=== PATIENT | female | born 2000 | race Caucasian/White ===

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

== ENCOUNTER 2022-02-23 13:21 | Emergency (ER) | payer OTHER, SELFPAY ==
[2022-02-23 13:18] VITALS: BP 123/69; PULSE 101; RESP 26; TEMP 36.4; O2SAT 99
--- NOTE | 2022-02-23 13:22 | ECG_ITS ---
Measurements Intervals [place] Rate: 95 P: 22 MT: 158 QRS: 23 QRSD: 95 T: 9 QT: 344 QTc: 434 Interpretive Statements SINUS RHYTHM DIFFUSE J-POINT ELEVATION WITH NORMALLY INFLECTED T-WAVE PROBABLE EARLY REPOLARIZATION ABNORMALITY NORMAL ECG NO PREVIOUS ECG AVAILABLE FOR COMPARISON Electronically Signed On 02-23-2022 17:01:18 CDT by Dakota Dinero M.D.
[2022-02-23 13:46] VITALS: BP 111/60; PULSE 99
--- NOTE | 2022-02-23 13:57 | ED.DIZZY ---
HPI - Dizziness General Chief Complaint: Syncope Stated Complaint: dizzy/ 8 months Time Seen by Provider: 02/23/22 13:26 History of Present Illness HPI Narrative: 21-year-old female who is 31 weeks , G3, P1 presents to the emergency room for evaluation of dizziness. Patient states that she is a patient of Dr. Ochoa with SI HF. Reports earlier today she was sitting on a public bus experiencing some dizziness. Patient states that she has been experiencing dizziness since she was 2 months . Reports getting off the bus and sitting on the sidewalk, reportedly the dizziness improved. States dizziness is worse with movement. Denies any nausea or vomiting. Denies chest pain or shortness of breath. Patient states that she was recently diagnosed with a urinary tract infection and [facility] completed a course of antibiotics. Denies nausea or vomiting. Related Data Home Medications Medication Instructions Recorded Confirmed aripiprazole 5 mg tablet (Abilify) 5 mg PO DAILY 06/09/19 11/15/19 fluoxetine 10 mg tablet 10 mg PO DAILY 09/16/19 11/15/19 Allergies Allergy/AdvReac Type Severity Reaction Status Date / Time amoxicillin Allergy Intermediate Rash Verified 11/15/19 11:43 codeine Allergy Unknown Rash Verified 11/15/19 11:43 Review of Systems Review of Systems: CONSTITUTIONAL: Denies fever, chills, or sweats. EYES: Denies visual changes, redness, or discharge. ENT: Denies rhinorrhea, congestion, sore throat, or otalgia. CARDIOVASCULAR: Denies chest pain, palpitations, or edema. RESPIRATORY: Denies cough or dyspnea. GASTROINTESTINAL: Denies abdominal pain, nausea, vomiting, or diarrhea. GENITOURINARY: Denies dysuria or hematuria. SKIN: Denies rash or itching. MUSCULOSKELETAL: Denies back pain, joint pain, or myalgia. NEUROLOGIC: Reports dizziness PSYCHIATRIC: Denies anxiety or depression. Exam Narrative: GENERAL: Well-appearing, well-nourished, no physical limitations, and in no acute distress. HEAD: Normocephalic, atraumatic. EYES: Conjunctivae normal, PERRLA and EOMI. CHEST: Clear to auscultation. No respiratory distress. No wheezes rales or rhonchi. No tenderness. HEART: Tachycardic rate and regular rhythm. No murmur heard. Normal peripheral pulses. ABDOMEN: Soft, nontender, parous abdomen, normal active bowel sounds. EXTREMITIES: Normal range of motion. No edema. No clubbing or cyanosis SKIN: Warm, dry, no rash. No noted wounds NEURO: No focal deficits. Alert and oriented x3. MAEW. CN's II-XI intact bilaterally, normal gait PSYCH: Cooperative. Normal mood and affect. Course Course Emergency Course: 1529: Spoke to Dr. Mcmahon regarding patient. He is agreeable to discharging patient home with follow-up in his office this week if she has not establish care with a different [employer] by then. Vital Signs Vital signs: Vital Signs Temperature 36.4 C L 02/23/22 13:18 Pulse Rate 101 H 02/23/22 13:18 Respiratory Rate 26 H 02/23/22 13:18 Blood Pressure 123/69 02/23/22 13:18 Pulse Oximetry 99 02/23/22 13:18 Oxygen Delivery Room Air 02/23/22 13:18 Temperature 36.4 C L 02/23/22 13:18 Pulse Rate 101 H 02/23/22 13:18 Respiratory Rate 26 H 02/23/22 13:18 Blood Pressure 123/69 02/23/22 13:18 Pulse Oximetry 99 02/23/22 13:18 Oxygen Delivery Room Air 02/23/22 13:18 MDM - Dizziness Lab Data Result diagrams: 02/23/22 14:18 02/23/22 14:18 Labs: Lab Results 02/23/22 02/23/22 02/23/22 Range/Units 14:18 14:18 14:18 WBC 13.9 H (4.5-10.0) K/mm3 RBC 3.32 L (4.2-5.4) M/mm3 Hgb 10.4 L (12.0-15.0) g/dL Hct 30.6 L (37.0-47.0) % MCV 92.2 (80-100) fl MCH 31.3 (26-34) pg MCHC 34.0 (32-36) g/dl RDW 13.0 (11.5-14.5) % Plt Count 106 L (150-375) k/mm3 MPV 12.6 H (7.4-10.4) fl Immature Gran % (Auto) 1.4 H (0-0.5) % Neut % (Auto) 78.3 H (45.5-73.1) % Lymph % (A
[2022-02-23 14:36] LABS: Basophils Percent Auto 0.3 % (0.2-1.2); Eosinophils Absolute Auto 0.1 K/mm3 (0-0.3); Eosinophils Percent Auto 0.8 % (0-4.4); Hematocrit 30.6 % (37.0-47.0); Hemoglobin 10.4 g/dL (12.0-15.0); Immature Granulocyte Absolute 0.19 K/mm3 (0.00-0.031); Immature Granulocyte Percent A 1.4 % (0-0.5); Lymphocytes Absolute Auto 1.59 K/mm3 (0.9-3.2); Lymphocytes Percent Auto 11.4 % (18.3-44.2); Mean Corpuscular Hemoglobin 31.3 pg (26-34); Mean Corpuscular Volume 92.2 fl (80-100); Mean Platelet Volume 12.6 fl (7.4-10.4); Monocytes Absolute Auto 1.1 K/mm3 (0.1-0.6); Monocytes Percent Auto 7.8 % (2.6-8.5); Neutrophils Absolute Auto 10.9 K/mm3 (1.3-6.7); Neutrophils Percent Auto 78.3 % (45.5-73.1); Platelet Count Result 106 k/mm3 (150-375); Red Blood Count 3.32 M/mm3 (4.2-5.4); White Blood Count 13.9 K/mm3 (4.5-10.0)
[2022-02-23 14:43] LABS: Appearance Urine Clear (Clear); Bilirubin Urine Negative (Negative); Blood Urine Negative (Negative); Color Urine Yellow (Yellow); Glucose Urine UA Negative (Negative); Ketones Urine Negative (Negative); Leukocyte Esterase Ur Negative LEU/UL (Negative); Nitrate Urine Negative (Negative); Protein Urine 2+ mg/dL (Negative); Specific Grav Ur 1.015 (1.001-1.035); Urobilinogen Urine 0.2 mg/dL (<2.0); pH Urine 7.5 (5.0-9.0)
[2022-02-23 14:58] LABS: Alanine Aminotransferase 16 U/L (6-35); Albumin Level 3.1 g/dL (3.5-5.1); Alkaline Phosphatase 75 U/L (38-126); Anion Gap 7 mmol/L (8-16); Aspartate Amino Transferase 14 U/L (14-36); Bilirubin,Total 0.3 mg/dL (0.2-1.3); Blood Urea Nitrogen 5 mg/dL (7-17); Calcium 8.5 mg/dL (8.4-10.2); Carbon Dioxide 21 mmol/L (22-30); Chloride 107 mmol/L (98-107); Estimated CRCL calculation 176 ml/min; Estimated Glomerular Filt Rate > 60; Glucose 117 mg/dL (65-110); Potassium 3.6 mmol/L (3.4-5.0); Sodium 135 mmol/L (137-145)
[2022-02-23 15:09] LABS: Troponin I < 0.012 ng/mL (0.000-0.034)
[2022-02-23 15:16] LABS: Mucus Urine Rare /lpf; RBC Urine 0-2 /hpf (0-2); Squamous Epithelial Cell Urine Moderate /hpf (Few); WBC Urine 0-3 /hpf
[2022-02-23 15:18] LABS: Add Urine Microscopic? YES
[2022-02-23 15:22] LABS: Barbiturate Screen Urine Negative (Negative)
[2022-02-23 15:24] LABS: Amphetamine Screen Urine Negative (Negative); Cannabinoid Screen Urine Positive (Negative); Cocaine Screen Urine Negative (Negative); Opiate Screen Urine Negative (Negative); Phencyclidine Screen Urine Negative (Negative)
[2022-02-23 15:25] LABS: Benzodiazepines Screen Urine Negative (Negative)
[2022-02-23 15:30] LABS: Methadone Screen Urine Negative (Negative)
[2022-02-23 16:23] VITALS: BP 126/59; PULSE 91; RESP 23; O2SAT 99
== END 2022-02-23 17:01 | disposition home or self-care (01) ==
PROVIDERS: Emergency Provider Nurse Practitioner Family
DX: O26.893 Other specified pregnancy related conditions, third trimester (principal); R42 Dizziness and giddiness; Z3A.31 31 weeks gestation of pregnancy
CPT/HCPCS: 36415; 80053; 80307; 81001; 84484; 85025; 93005; 99284